=== PATIENT | female | born 1970 | race Caucasian/White ===

== ENCOUNTER → 2019-10-13 09:06 | Outpatient (CLI) | payer BC, SELFPAY ==
--- NOTE | ~2019-10-13 | US_ITS ---
EXAMINATION: US venous doppler LE RT EXAM DATE: 10/13/2019 09:47 INDICATION: Right leg pain. TECHNIQUE: Multiple grayscale, color flow and Doppler images of the right lower extremity deep venous system were obtained and reviewed. There is no prior study for comparison. FINDINGS: The right common femoral, femoral and profunda veins demonstrate normal color flow, respira tory variation, augmentation and compressibility. Compressibility, color flow confirmed within the r ight popliteal, posterior tibial, peroneal, and greater saphenous veins. IMPRESSION: 1. No right lower extremity deep venous thrombosis. Reviewed, dictated and finalized at location B.
== END ==
PROVIDERS: PCP Nurse Practitioner Family; Visit Provider Nurse Practitioner Family
DX: M79.604 Pain in right leg (principal)
CPT/HCPCS: 93971

== ENCOUNTER 2020-07-13 14:44 | Outpatient (CLI) | payer BC, SELFPAY ==
--- NOTE | ~2020-07-13 | US_ITS ---
EXAMINATION: US arterial ankle brachial ind EXAM DATE: 07/13/2020 15:29 INDICATION: Cold feet. Claudication range one block. High blood pressure. TECHNIQUE: Segmental pressures and plethysmographic and Doppler waveforms of the brachial and lower e xtremity arteries were obtained. There is no prior study for comparison. FINDINGS: Right and left brachial artery pressures of 109 mm Hg and 105 mm Hg, respectively, are concordant (no rmal difference <= 30 mmHg). RIGHT LEG: The ankle-brachial index (ROSALIO) is 1.11 (normal >= 0.9-1). The great toe-brachial index (TBI) is 0.71 (normal >= 0.65). The lower extremity ratios, segmental pressure gradients as follows; Dorsalis pedis: 1.11 (121 mmHg). Posterior tibial: 1.08 (118 mmHg). (Normal gradients <= 20-30 mmHg between adjacent levels on the same leg or the same levels on the two legs). Arterial waveforms are biphasic PT, monophasic DP. LEFT LEG: The ankle-brachial index (ROSALIO) is 1.11 (normal >= 0.9-1). The great toe-brachial index (TBI) is 0.26 (normal >= 0.65). The lower extremity ratios, segmental pressure gradients as follows; Dorsalis pedis: 1.11 (121 mmHg). Posterior tibial: 1.01 (110 mmHg). (Normal gradients <= 20-30 mmHg between adjacent levels on the same leg or the same levels on the two legs). Arterial waveforms are biphasic DP, monophasic PT. IMPRESSION: 1. Right ankle-brachial index 1.11, normal. 2. Left ankle-brachial index 1.11, normal. Reviewed, dictated and finalized at location A.
== END 2020-07-13 14:45 | disposition home or self-care (01) ==
PROVIDERS: PCP Nurse Practitioner Family; Visit Provider Nurse Practitioner Family
DX: R23.8 Other skin changes (principal); R20.8 Other disturbances of skin sensation
CPT/HCPCS: 93922

== ENCOUNTER 2023-07-26 09:05 | Outpatient (CLI) | payer BC, SELFPAY ==
--- NOTE | ~2023-07-26 | XR_ITS ---
XR hip RT 2V w AP pelvis DATE: 07/26/2023 09:45 INDICATION: Right hip pain TECHNIQUE: AP pelvis. AP and lateral views right hip. COMPARISON: None FINDINGS: There is minimal lumbar dextroscoliosis. Moderate degenerative disc disease of the lumbar s pine and evidence of degenerative change at the lower lumbar apophyseal joints. Normal alignment of the pubic symphysis and sacroiliac joints. Mild bilateral hip osteophytosis. No pelvic fracture or fracture or dislocation, avascular necrosis or bone destruction of the right hi p. IMPRESSION: Degenerative changes of lumbar spine Mild bilateral hip osteoarthritis Reviewed, dictated and finalized at location A.
== END 2023-07-26 09:06 ==
PROVIDERS: PCP Family Medicine; Visit Provider Family Medicine
DX: M25.551 Pain in right hip (principal); M16.0 Bilateral primary osteoarthritis of hip
CPT/HCPCS: 73502